=== PATIENT | female | born 1970 | race African-American/Black ===

== ENCOUNTER 2023-08-12 12:09 | Emergency (ER) | payer MEDICAID ==
[~2023-08-12] VITALS: Ht 152.4 cm; Wt 81.0 kg
[~2023-08-12 12:09] MED LIST: ALBU18HF2 IH; DIPH25TA24 PO; P50 MT
[2023-08-12 12:15] VITALS: BP 144/89; TEMP 98.4
[2023-08-12] MEDS ORDERED: PREDNISONE 20MG TABLET PO STA (12:25)
[2023-08-12] MEDS ORDERED: IPRATROPIUM BROMIDE (0.02%) 0.5MG/2.5ML NEB HHN STA (12:25)
[2023-08-12 13:00] VITALS: PULSE 76; RESP 24; O2SAT 97
[2023-08-12] MEDS: ALBUTEROL (0.083%) 2.5MG/3ML NEB HHN SCH ×2 (13:00→13:45)
[2023-08-12 13:13] LABS: BASOPHILS % 0.6 % (0.0-2.0); DIFFERENTIAL COMMENT 0; EOSINOPHILS % 2.7 % (0.0-5.0); HEMATOCRIT. 40.5 % (36.0-48.0); HEMOGLOBIN. 13.2 g/dL (12.0-16.0); LYMPHOCYTES % 46.1 % (20.0-50.0); MEAN CORPUSCULAR HEMOGLOBIN 26.1 pg (28.0-32.0); MEAN CORPUSCULAR HGB CONC 32.7 g/dL (31.0-37.0); MEAN CORPUSCULAR VOLUME 79.9 fL (81.0-99.0); MEAN PLATELET VOLUME 9.3 fl (7.4-10.4); MONOCYTES % 12.8 % (2.0-8.0); NEUTROPHILS % 37.8 % (40.0-76.0); PLATELET 223 x1000/uL (130-400); RED BLOOD CELL COUNT 5.07 mill/uL (4.2-5.4); RED CELL DISTRIBUTION WIDTH 15.2 % (11.6-14.6); WHITE BLOOD COUNT 6.6 x1000/uL (4.5-11.0)
[2023-08-12 13:31] LABS: CHLORIDE 107 mEq/L (98-107); INDEX HEMOLYSI 1 (1-3); INDEX ICTERIC 1 (1-4); INDEX LIPEMIC 1 (1-3); POTASSIUM 3.6 mEq/L (3.5-5.1); SODIUM 139 mEq/L (136-145)
[2023-08-12 13:44] LABS: ALANINE AMINOTRANSFERASE 22 IU/L (13-61); ALBUMIN 3.9 g/dL (3.4-5.0); ASPARTATE AMINOTRANSFERASE 25 IU/L (15-37); BILIRUBIN TOTAL 0.6 mg/dL (0.1-1.0); CALCIUM 8.4 mg/dL (8.5-10.1); CARBON DIOXIDE 23 mEq/L (21-32); CREATININE 0.9 mg/dL (0.6-1.3); GLUCOSE 100 mg/dL (70-105); NT PRO B-TYPE NATRIURETIC PEP 18 pg/mL (5-125); TROPONIN I HIGH SENSITIVITY 44 ng/L (<54); UREA NITROGEN BLOOD 13 mg/dL (7-21)
[2023-08-12] MEDS ORDERED: ALBU05 NEB (14:04)
[2023-08-12] MEDS ORDERED: P20 MT (14:04)
[2023-08-12] MEDS ORDERED: PREDNISONE 20MG TABLET PO NR (14:32)
== END 2023-08-12 14:54 | disposition home or self-care (01) ==
LOC: ER 12:40
DX: J45.901 Unspecified asthma with (acute) exacerbation (principal)
CPT/HCPCS: 80053; 83880; 85025; 84484; 36415; 71045; 93005; 94644; 99285; J7512; Z7610 ×3